=== PATIENT | female | born 1980 | race Caucasian/White ===

== ENCOUNTER 2017-07-22 12:24 | Outpatient (CLI) | payer OTHER ==
[2017-07-23 08:08] LABS: HEPATITIS A AB, IgM Negative (Negative); HEPATITIS B CORE AB, IgM Negative (Negative); HEPATITIS B CORE AB, TOTAL Negative (Negative); HEPATITIS B SURFACE AG Negative (Negative); HEPATITIS C VIRUS AB <0.1 s/co ratio (0.0-0.9)
[2017-07-24 06:11] LABS: HEPATITIS Be AG Negative (Negative)
[2017-07-24 12:07] LABS: HEPATITIS Be AB Negative (Negative)
== END 2017-07-22 19:52 | disposition home or self-care (01) ==
LOC: SLB 12:24
PROVIDERS: ATTEND Specialist
DX: Z11.3 Encounter for screening for infections with a predominantly sexual mode of transmission (principal)
CPT/HCPCS: 36415; 86592; 86704; 86705; 86706; 86707; 86709; 86803; 87340; 87350

== ENCOUNTER 2020-03-11 12:58 | Outpatient (CLI) | payer OTHER, SELFPAY | END 2020-03-11 19:11 | disposition home or self-care (01) | LOC: SLB 12:58 | PROVIDERS: ATTEND Specialist | DX: U07.1 COVID-19 (principal) | CPT/HCPCS: 36415 ==